=== PATIENT | female | born 1980 | race Caucasian/White ===

== ENCOUNTER → 2020-11-25 | Outpatient (CLI) | payer BC | LOC: MC.RAD 10:41 | DX: R92.8 Other abnormal and inconclusive findings on diagnostic imaging of breast (principal) ==

== ENCOUNTER → 2020-12-07 | Outpatient (CLI) | payer BC | LOC: MC.RAD 07:58 | DX: D24.2 Benign neoplasm of left breast (principal) ==

== ENCOUNTER → 2021-06-20 | Outpatient (CLI) | payer BC | LOC: MC.RAD 10:50 | DX: D24.9 Benign neoplasm of unspecified breast (principal) ==